=== PATIENT | female | born 1945 | race Caucasian/White ===

== ENCOUNTER 2024-04-10 10:32 | Inpatient (IN) | payer MEDICARE, MEDICAID ==
[~2024-04-10] VITALS: Ht 147.3 cm; Wt 66.5 kg
[2024-04-10] MEDS ORDERED: heparin 25,000 UNIT/250ml bag 250 ML IV PRN ×3 (11:05→17:30)
[2024-04-10] MEDS: heparin 10,000 units/1 ML INJ IV PRN (11:08)
[2024-04-10] MEDS: HEPARIN DRIP INITAL BOLUS --- DO NOT GIVE/ORDER MC ONE (11:09)
[2024-04-10] MEDS: heparin 25,000 UNIT/250ml bag 250 ML IV PRN (11:18)
[2024-04-10 11:36] LABS: BASOPHILS # (AUTO) 0.1 X10'3 (0-0.2); BASOPHILS % (AUTO) 0.5 % (0-1); EOSINOPHILS # (AUTO) 0.1 X10'3 (0-0.9); HEMATOCRIT 46.2 % (35.0-45.0); HEMOGLOBIN 15.8 g/dl (12.0-16.0); LYMPHOCYTES # (AUTO) 2.3 X10'3 (1.1-4.8); LYMPHOCYTES % (AUTO) 20.5 % (21-51); MEAN CORPUSCULAR HEMOGLOBIN 29.4 PG (27.0-31.0); MEAN CORPUSCULAR HGB CONC 34.2 g/dL (33.0-36.5); MEAN CORPUSCULAR VOLUME 86.1 FL (78-98); MEAN PLATELET VOLUME 7.8 FL (7.4-10.4); MONOCYTES # (AUTO) 1.3 X10'3 (0-0.9); MONOCYTES % (AUTO) 11.3 % (2-12); NEUTROPHILS # (AUTO) 7.4 X10'3 (1.8-7.7); NEUTROPHILS % (AUTO) 66.7 % (42-75); PLATELET COUNT 306 X10'3 (140-440); RED BLOOD COUNT 5.36 X10'6 (4.20-5.60); RED CELL DISTRIBUTION WIDTH 14.4 % (11.5-14.5); WHITE BLOOD COUNT 11.1 X10'3 (4.5-11.0)
[2024-04-10] MEDS: MESSAGE TO NURSING IV ONE (11:42)
[2024-04-10 11:51] LABS: APTT 67 SECONDS (22-32); INR 1.1 INR; PROTHROMBIN TIME 11.3 SECONDS (9.0-12.0)
[2024-04-10 12:04] LABS: MAGNESIUM 1.9 MG/DL (1.5-2.4); PRO BRAIN NATRIURETIC PEPTIDE 2739 PG/ML (0-450)
[2024-04-10] MEDS ORDERED: magnesium sulf-water 4G/100mL 100 ML IV PRN (13:00)
[2024-04-10] MEDS ORDERED: potassium Cl 40MEQ/1/2NS 520ml 520 ML IV PRN (13:00)
[2024-04-10] MEDS ORDERED: heparin 10,000 units/1 ML INJ IV PRN (13:00)
[2024-04-10] MEDS ORDERED: magnesium hydroxide 30ml (MOM) UD suspension PO PRN (13:00)
[2024-04-10] MEDS ORDERED: magnesium Cl slow-release 64mg tablet PO PRN (13:00)
[2024-04-10] MEDS ORDERED: magnesium sulf-water 2g/50mL 50 ML IV PRN (13:00)
[2024-04-10] MEDS ORDERED: potassium Cl 20 mEq SR tablet PO PRN (13:00)
[2024-04-10] MEDS ORDERED: ondansetron/PF 4mg/2ml inj IV PRN (13:00)
[2024-04-10] MEDS ORDERED: morphine 2 MG/ML inj. syringe IV PRN ×3 (13:00→22:50)
[2024-04-10] MEDS ORDERED: heparin 10,000 units/1 ML INJ IV ONE (13:00)
[2024-04-10] MEDS: normal saline 1000ml 1,000 ML IV SCH (13:25)
[2024-04-10 14:29] LABS: ALANINE AMINOTRANSFERASE 35 U/L (12-78); ALBUMIN 3.7 G/DL (3.4-5.0); ALBUMIN/GLOBULIN RATIO 1.1 (1.1-1.5); ALKALINE PHOSPHATASE 104 IU/L (46-116); ANION GAP 12 (8-16); ASPARTATE AMINO TRANSFERASE 48 U/L (10-37); BILIRUBIN,TOTAL 1.4 MG/DL (0.1-1.0); BLOOD UREA NITROGEN 43 MG/DL (7-18); BUN/CREATININE RATIO 40.6 (10.0-20.0); CALCIUM 8.4 MG/DL (8.5-10.1); CHLORIDE 102 MMOL/L (99-107); CREATININE 1.06 MG/DL (0.40-0.90); GLUCOSE 109 MG/DL (70-104); POTASSIUM 3.3 MMOL/L (3.5-5.1); SODIUM 140 MMOL/L (135-145); TOTAL CARBON DIOXIDE 25.8 MMOL/L (24-32); TOTAL PROTEIN 7.2 G/DL (6.4-8.2); eCRCL 29 ML/MIN; eGFR 50 ML/MIN
[2024-04-10 17:21] LABS: CHOL/HDL RATIO 4.7 (0.00-4.99); CHOLESTEROL 279 MG/DL (0-200); HDL CHOLESTEROL 59 MG/DL (35-60); LDL CHOLESTEROL 178 MG/DL (50-100); TRIGLYCERIDES 148 MG/DL (20-135)
[2024-04-10] MEDS: potassium Cl 20 mEq SR tablet PO PRN (18:16)
[2024-04-10] MEDS ORDERED: ASPI-1071 PO (19:35)
[2024-04-10] MEDS ORDERED: IBUP-1985 PO (19:35)
[2024-04-10 20:00] VITALS: RESP 16; O2SAT 96
[2024-04-10] MEDS: docusate sod 100mg capsule PO SCH (20:00)
[2024-04-10] MEDS: K and/or MAG REPLACEMENT MC SCH (20:00)
[2024-04-10 22:30] VITALS: BP 148/82; PULSE 80; RESP 20; TEMP 97.4; O2SAT 94
[2024-04-10] MEDS: morphine 2 MG/ML inj. syringe IV PRN (22:50)
[2024-04-10] MEDS: nitroGLYCERIN 0.4mg SUBLingual tab SL PRN (22:52)
[2024-04-11] VITALS (16 sets, daily range): BP systolic 130–157; BP diastolic 62–95; PULSE 62–91; RESP 12–20; TEMP 97.1–98.4; O2SAT 93–96
[2024-04-11] MEDS: MESSAGE TO NURSING IV ONE ×2 (00:15→07:46)
[2024-04-11] MEDS: Melatonin 3mg tablet PO SCH (00:41)
[2024-04-11 06:56] LABS: BASOPHILS # (AUTO) 0.1 X10'3 (0-0.2); BASOPHILS % (AUTO) 0.6 % (0-1); EOSINOPHILS # (AUTO) 0.4 X10'3 (0-0.9); EOSINOPHILS % (AUTO) 4.9 % (0-6); HEMATOCRIT 42.1 % (35.0-45.0); HEMOGLOBIN 14.4 g/dl (12.0-16.0); LYMPHOCYTES # (AUTO) 2.8 X10'3 (1.1-4.8); LYMPHOCYTES % (AUTO) 34.6 % (21-51); MEAN CORPUSCULAR HEMOGLOBIN 29.5 PG (27.0-31.0); MEAN CORPUSCULAR HGB CONC 34.2 g/dL (33.0-36.5); MEAN CORPUSCULAR VOLUME 86.3 FL (78-98); MEAN PLATELET VOLUME 7.2 FL (7.4-10.4); MONOCYTES # (AUTO) 0.8 X10'3 (0-0.9); MONOCYTES % (AUTO) 10.4 % (2-12); NEUTROPHILS % (AUTO) 49.5 % (42-75); PLATELET COUNT 250 X10'3 (140-440); RED BLOOD COUNT 4.88 X10'6 (4.20-5.60); RED CELL DISTRIBUTION WIDTH 14.4 % (11.5-14.5); WHITE BLOOD COUNT 8.1 X10'3 (4.5-11.0)
[2024-04-11 07:18] LABS: ALANINE AMINOTRANSFERASE 29 U/L (12-78); ALBUMIN 3.3 G/DL (3.4-5.0); ALBUMIN/GLOBULIN RATIO 1.1 (1.1-1.5); ALKALINE PHOSPHATASE 97 IU/L (46-116); ANION GAP 9 (8-16); ASPARTATE AMINO TRANSFERASE 45 U/L (10-37); BILIRUBIN,TOTAL 1.6 MG/DL (0.1-1.0); BLOOD UREA NITROGEN 30 MG/DL (7-18); CALCIUM 8.4 MG/DL (8.5-10.1); CHLORIDE 103 MMOL/L (99-107); CREATININE 0.75 MG/DL (0.40-0.90); GLUCOSE 106 MG/DL (70-104); MAGNESIUM 1.6 MG/DL (1.5-2.4); POTASSIUM 3.5 MMOL/L (3.5-5.1); SODIUM 136 MMOL/L (135-145); TOTAL CARBON DIOXIDE 23.7 MMOL/L (24-32); TOTAL PROTEIN 6.3 G/DL (6.4-8.2); eCRCL 41 ML/MIN; eGFR 75 ML/MIN
[2024-04-11] MEDS: atorvastatin 20mg tablet PO SCH (08:30)
[2024-04-11] MEDS: aspirin 81mg tab.chew PO SCH (08:30)
[2024-04-11] MEDS: metoprolol succinate 25mg (24-HOUR) SR. Tablet PO SCH (08:31)
[2024-04-11] MEDS ORDERED: heparin 1,000unit/ml 10ml vial 0 ML ONE (09:47)
[2024-04-11] MEDS ORDERED: LIDOcaine 1% (10mg/ml) 2ml vial ONE (09:47)
[2024-04-11] MEDS ORDERED: iohexol 350MG/ML 100ml bottle IV ONE ×2 (09:47→16:47)
[2024-04-11] MEDS ORDERED: verapamil 2.5 mg/ml inj IV ONE (09:47)
[2024-04-11] MEDS ORDERED: nitroGLYCERIN 500mcg/5mL D5W 0 ML IV ONE (09:47)
[2024-04-11] MEDS ORDERED: fentaNYL/PF 50MCG/1 ML 2ML syringe ONE (09:47)
[2024-04-11] MEDS ORDERED: midazolam 1 mg/ML 2ml injection ONE (09:47)
[2024-04-11] MEDS ORDERED: LIDOcaine 1% 30ml preserv. free vial ONE (09:51)
[2024-04-11] MEDS: normal saline 1000ml 1,000 ML IV ONE (17:17)
[2024-04-11] MEDS: enoxaparin 100mg/ml syringe SUBCUT SCH (20:27)
[2024-04-11] MEDS: hydrocortisone 2.5% cream 28.4gm TP SCH (20:29)
[2024-04-11] MEDS ORDERED: Melatonin 3mg tablet PO SCH (21:00)
[2024-04-12 02:00] VITALS: BP 133/64; PULSE 79; RESP 23; TEMP 97.2; O2SAT 96
[2024-04-12 06:00] VITALS: BP 151/84; PULSE 88; RESP 20; TEMP 97.7; O2SAT 94
[2024-04-12 07:20] LABS: BASOPHILS % (AUTO) 0.6 % (0-1); EOSINOPHILS # (AUTO) 0.3 X10'3 (0-0.9); EOSINOPHILS % (AUTO) 3.7 % (0-6); HEMATOCRIT 38.8 % (35.0-45.0); HEMOGLOBIN 13.3 g/dl (12.0-16.0); LYMPHOCYTES # (AUTO) 0.8 X10'3 (1.1-4.8); LYMPHOCYTES % (AUTO) 11.8 % (21-51); MEAN CORPUSCULAR HGB CONC 34.1 g/dL (33.0-36.5); MEAN CORPUSCULAR VOLUME 87.8 FL (78-98); MEAN PLATELET VOLUME 7.7 FL (7.4-10.4); MONOCYTES # (AUTO) 0.6 X10'3 (0-0.9); MONOCYTES % (AUTO) 8.7 % (2-12); NEUTROPHILS # (AUTO) 5.4 X10'3 (1.8-7.7); NEUTROPHILS % (AUTO) 75.2 % (42-75); PLATELET COUNT 201 X10'3 (140-440); RED BLOOD COUNT 4.42 X10'6 (4.20-5.60); RED CELL DISTRIBUTION WIDTH 14.3 % (11.5-14.5); WHITE BLOOD COUNT 7.2 X10'3 (4.5-11.0)
[2024-04-12 07:55] LABS: ALANINE AMINOTRANSFERASE 21 U/L (12-78); ALBUMIN 2.9 G/DL (3.4-5.0); ALKALINE PHOSPHATASE 91 IU/L (46-116); ANION GAP 8 (8-16); ASPARTATE AMINO TRANSFERASE 26 U/L (10-37); BILIRUBIN,TOTAL 1.2 MG/DL (0.1-1.0); BLOOD UREA NITROGEN 21 MG/DL (7-18); BUN/CREATININE RATIO 35.6 (10.0-20.0); CALCIUM 7.8 MG/DL (8.5-10.1); CHLORIDE 108 MMOL/L (99-107); CREATININE 0.59 MG/DL (0.40-0.90); GLUCOSE 108 MG/DL (70-104); MAGNESIUM 1.5 MG/DL (1.5-2.4); POTASSIUM 3.7 MMOL/L (3.5-5.1); SODIUM 138 MMOL/L (135-145); TOTAL PROTEIN 5.8 G/DL (6.4-8.2); eCRCL 52 ML/MIN; eGFR > 90 ML/MIN
[2024-04-12] MEDS: acetaminophen 325mg tablet PO PRN (07:58)
[2024-04-12 08:00] VITALS: RESP 22; O2SAT 94
[2024-04-12] MEDS ORDERED: METO-395 PO (10:33)
[2024-04-12] MEDS ORDERED: FURO-150 PO (10:33)
[2024-04-12] MEDS ORDERED: CLOP-32 PO (10:33)
[2024-04-12] MEDS ORDERED: ATOR20TA66 PO (10:33)
[2024-04-12 11:00] VITALS: BP 145/65; PULSE 85; RESP 16; TEMP 98.1; O2SAT 95
[2024-04-12] MEDS ORDERED: APIX5TAB3 PO (12:57)
[2024-04-12] MEDS: mag hydrox/Alum hydrox/simeth 30ml oral suspension PO PRN (14:11)
== END 2024-04-12 15:10 | disposition home or self-care (01) | DRG 281 ==
LOC: ER 10:33 → ED HOLD 11:08 → PCU 3S 22:25
PROVIDERS: ADMIT Internal Medicine; ATTEND Internal Medicine
PROC: 4A023N7 Measurement of Cardiac Sampling and Pressure, Left Heart, Percutaneous Approach (ICD-10-PCS; principal; 2024-04-11)
PROC: B2111ZZ Fluoroscopy of Multiple Coronary Arteries using Low Osmolar Contrast (ICD-10-PCS; 2024-04-11)
PROC: B32T1ZZ Computerized Tomography (CT Scan) of Left Pulmonary Artery using Low Osmolar Contrast (ICD-10-PCS; 2024-04-11)
PROC: B3201ZZ Computerized Tomography (CT Scan) of Thoracic Aorta using Low Osmolar Contrast (ICD-10-PCS; 2024-04-11)
PROC: B32S1ZZ Computerized Tomography (CT Scan) of Right Pulmonary Artery using Low Osmolar Contrast (ICD-10-PCS; 2024-04-11)
PROC: B2151ZZ Fluoroscopy of Left Heart using Low Osmolar Contrast (ICD-10-PCS; 2024-04-11)
DX: I21.4 Non-ST elevation (NSTEMI) myocardial infarction (principal); N17.9 Acute kidney failure, unspecified; M06.9 Rheumatoid arthritis, unspecified; I10 Essential (primary) hypertension; I48.0 Paroxysmal atrial fibrillation; E78.5 Hyperlipidemia, unspecified; M34.89 Other systemic sclerosis; E86.0 Dehydration; M34.9 Systemic sclerosis, unspecified
CPT/HCPCS: 36415; 71045; 71275; 80053; 80061; 83735; 83880; 84484; 85025; 85610; 85651; 85730; 87081; 93005; 93306; 93458; 99152; 99291; A6258; G0378; J1644; J1650; J2003; J2250; J2270; J3010; J3490; J7030; Q9967